=== PATIENT | female | born 1960 | race African-American/Black ===

== ENCOUNTER 2020-11-12 04:45 | Day surgery (SDC) | payer BC ==
[2020-11-10 09:18] VITALS: BMI 23.9
[2020-11-12 10:01] VITALS: TEMP 98
[2020-11-12 10:18] VITALS: BP 105/54; PULSE 73
== END 2020-11-12 11:10 | disposition home or self-care (01) ==
LOC: JASU-ENDO 04:45
PROVIDERS: ATTEND Internal Medicine Gastroenterology
PROC: 0DJD8ZZ Inspection of Lower Intestinal Tract, Via Natural or Artificial Opening Endoscopic (ICD-10-PCS; principal; 2020-11-12 09:30)
DX: Z12.11 Encounter for screening for malignant neoplasm of colon (principal); K51.90 Ulcerative colitis, unspecified, without complications

== ENCOUNTER 2024-02-22 05:08 | Day surgery (SDC) | payer BC ==
[2024-02-16 12:23] VITALS: BMI 26.1
[2024-02-22 11:06] VITALS: TEMP 97.9
[2024-02-22 11:38] VITALS: BP 115/56; PULSE 68; RESP 15
== END 2024-02-22 12:06 | disposition home or self-care (01) ==
LOC: JASU-ENDO 05:08
PROVIDERS: ATTEND Internal Medicine Gastroenterology
PROC: 0DJD8ZZ Inspection of Lower Intestinal Tract, Via Natural or Artificial Opening Endoscopic (ICD-10-PCS; principal; 2024-02-22 10:30)
DX: Z12.11 Encounter for screening for malignant neoplasm of colon (principal); K51.90 Ulcerative colitis, unspecified, without complications
CPT/HCPCS: 82962